=== PATIENT | female | born 1970 | race African-American/Black ===

== ENCOUNTER 2019-04-09 09:49 | Emergency (ER) | payer BC ==
[2019-04-09 10:02] VITALS: BMI 23.1
[2019-04-09 10:08] VITALS: TEMP 98.2
[2019-04-09] MEDS ORDERED: FAMOTIDINE 20 MG/50 ML IVPB 20 MG in PREMIX 50 IVPB ONE (10:24)
[2019-04-09] MEDS ORDERED: MAG HYDROX/AL HYDROX/SIMETH -MYLANTA- ORAL SUSPENSION PO ONE (10:24)
[2019-04-09] MEDS ORDERED: SODIUM CHLORIDE 1,000 ML IV ONE (10:24)
--- NOTE | 2019-04-09 10:24 | PDOC ---
History of Present Illness - General Chief Complaint: Weakness Stated Complaint: WEAKNESS, DIARRHEA Time Seen by Provider: 04/09/19 09:55 History Source: Patient Exam Limitations: No Limitations - History of Present Illness Initial Comments: 04/09/19 10:28 48y F hx of gerd presents with general weakness sp approx 1 week of diarrhea and abd pain. Pt notes she was in the [place] last week and the 2nd day she was there she started having cramping abd pain that was intermittent associated with loose/watery nonbloody/non melantoic stool. pt endorse nausea but has not had any vomting. denies any fever/chills, dysuria, ferquency, hematuria, vag bleeding or discharge, back pain, cp, sob, braden, hemoptysis, leg swelling, headache, focal numbness/tingling/weakness. pt notse her diarrhea has improved (was soft this morning) and her pain is better, however she is now feeling generally weak. 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 [employer] Constitutional - no reported Fever, Chills, HEENT: no reported vision changes, sore throat Respiratory: no reported cough, sob, hemoptysis Cardiac: no reported chest pain, palpitations, light headedness, leg swelling Abd/GI: + nausea, abd pain, diarrhea no reported vomiting, blood per rectum, melena, : no reported dysuria, frequency, discharge Musculskelatal - no reported back pain, joint swelling skin - no reported bruising, erythema, rash neurological: no reported headache, numbness, focal weakness, tingling, ataxia, hematologic: no reported easy bruising, easy bleeding Physical Exam GENERAL: The patient is awake, alert, and fully oriented, Nontoxic - in no acute distress. HEAD: Normocephalic, atraumatic. EYES: extraocular movements intact, sclera anicteric, conjunctiva clear. ENT: Normal voice, dry mucous membranes. NECK: Normal range of motion, supple LUNGS: Breath sounds equal, clear to auscultation bilaterally. No wheezes, no rhonchi, no rales. HEART: Regular rate and rhythm, normal S1 and S2 without murmur, rub or gallop. ABDOMEN: Soft, nontender, No guarding, no rebound. No CVA tenderness EXTREMITIES: Normal range of motion, no edema. NEUROLOGICAL: No facial assymetry, Normal speech, PSYCH: Normal mood, normal affect. SKIN: Warm, Dry, normal turgor, ap suspect remanant gastroenteritis, possible mild dehydraiton or metabolic derangement no focal abd ttp to suggest acute infectious process will ck labs will hydrate with fluids will ck ua willreasses Past History - Past Medical History Allergies/Adverse Reactions: Allergies Allergy/AdvReac Type Severity Reaction Status Date / Time aspirin Allergy Verified 04/09/19 09:51 Home Medications: Ambulatory Orders Omeprazole 40 mg PO DAILY 04/09/19 COPD: No Other medical history: GERD - Suicide/Smoking/Psychosocial Hx Smoking History: Never smoked Hx Alcohol Use: No Drug/Substance Use Hx: No *Physical Exam - Vital Signs Last Vital Signs Temp Pulse Resp BP Pulse Ox 98.2 F 54 L 17 156/96 100 04/09/19 09:50 04/09/19 09:50 04/09/19 09:50 04/09/19 09:50 04/09/19 09:50 ED Treatment Course - LABORATORY CBC & Chemistry Diagram: 04/09/19 10:29 04/09/19 10:29 Medical Decision Making - Medical Decision Making 04/09/19 11:48 labs reviewed noted mildly leukopenic pt feeling improved willhave pt fu with pmd return precautiosn were discussed I discussed the physical exam findings, ancillary test results and final diagnoses with the patient. I answered all of the patient's questions. The patient was satisfied with the care received and felt comfortable with the discharge plan and treatment plan. The patient will call their primary care physician within 24 hours to arrange follow-up and will return to the Emergency Department with any new, persistent or worsening symptoms. *DC/Admit/Observation/Transfer Diagnosis at time of Disposition: Enteritis - Discharge Dispostion Disposition: HOME Condition at time of disposition: Improved Decision to Admit order: No - Referrals Referrals: Boris Rae [Non Staff, Medical] - - Patient Instructions Printed Discharge Instructions: DI for Diarrhea and Traveler's Diarrhea -- Adult Additional Instructions: Return to the emergency department immediately with ANY new, persistent or worsening symptoms including worsening abdominal pain, fevers, inability to tolerate oral intake, chest pain, shortness of breath or any other concerns. Your blood tests were noted slightly abnormal, I suspect this is due to your infection please follow-up with your primary care doctor to have this reviewed Stay well hydrated. You MUST call and follow up with your doctor in 4-5 days. Your emergency department visit is not complete without a followup with your doctor for reevaluation. Please make sure your doctor reviews the results of your emergency evaluation. Print Language: MONGOLIAN - Post Discharge Activity Forms/Work/School Notes: Back to Work
[2019-04-09] MEDS ORDERED: MAG HYDROX/AL HYDROX/SIMETH 30 ML UNIT-DOSE CUP ONE (10:39)
[2019-04-09] MEDS ORDERED: FAMOTIDINE 20 MG/50 ML IVPB 20 MG/50 ML MG IVPB ONE (10:39)
[2019-04-09 10:56] LABS: BASO % 0.1 % (0-2.0); EOS % 14.3 % (0-4.5); HEMATOCRIT 32.6 % (32.4-45.2); HEMOGLOBIN 11.1 GM/dl (10.7-15.3); LYMPH % 36.2 % (8-40); MCH 31.5 pg (25.7-33.7); MEAN CELL VOLUME 92.8 fl (80-96); MEAN PLT VOLUME 7.4 fl (7.5-11.1); MONO % 12.6 % (3.8-10.2); NEUT % 36.8 % (42.8-82.8); PLATELET COUNT 377 K/MM3 (134-434); RBC 3.51 M/mm3 (3.60-5.2); RDW 15.7 % (11.6-15.6); WHITE BLOOD COUNT 3.2 K/mm3 (4.0-10.8)
[2019-04-09 11:04] LABS: ALBUMIN 3.9 g/dl (3.4-5.0); BILIRUBIN,TOTAL 0.6 mg/dl (0.2-1); CALCIUM 8.9 mg/dl (8.5-10); CREATININE 0.7 mg/dl (0.55-1.3); POTASSIUM 4.7 mmol/L (3.5-5.1)
[2019-04-09 12:12] VITALS: BP 142/93; PULSE 76
== END 2019-04-09 12:12 | disposition home or self-care (01) ==
LOC: FER 09:49
PROC: 3E033GC Introduction of Other Therapeutic Substance into Peripheral Vein, Percutaneous Approach (ICD-10-PCS; principal; 2019-04-09)
DX: K52.9 Noninfective gastroenteritis and colitis, unspecified (principal)
CPT/HCPCS: 36415; 80053; 81003; 83690; 84703; 85025; 99283-25; J7030